=== PATIENT | male | born 1985 ===

== ENCOUNTER 2024-05-06 13:01 | Day surgery (SDC) | payer BC ==
[~2024-05-06] VITALS: Ht 162.6 cm; Wt 64.8 kg
[~2024-05-06 13:01] MED LIST: Lactated Ringer's 1,000 ML IV ONE; propofoL 50 ML IV ONE
[2024-05-06] MEDS ORDERED: SUCR1 PO (13:49)
[2024-05-06] MEDS ORDERED: PANT40 PO (13:49)
[2024-05-06] MEDS ORDERED: Nexium40 MG PO (13:49)
[2024-05-06] MEDS ORDERED: Lactated Ringer's 1,000 ML IV ONE (14:01)
== END 2024-05-06 15:10 | disposition home or self-care (01) ==
LOC: ORSCSDS 13:01
PROVIDERS: Internal Medicine Gastroenterology
PROC: 0DJ08ZZ Inspection of Upper Intestinal Tract, Via Natural or Artificial Opening Endoscopic (ICD-10-PCS; principal; 2024-05-06 14:30)
DX: K21.9 Gastro-esophageal reflux disease without esophagitis (principal); R13.10 Dysphagia, unspecified; E11.9 Type 2 diabetes mellitus without complications; Z79.84 Long term (current) use of oral hypoglycemic drugs; Z79.899 Other long term (current) drug therapy
CPT/HCPCS: 82947; J2704; J7120